=== PATIENT | female | born 1970 | race Caucasian/White ===

== ENCOUNTER 2016-09-20 16:28 | Emergency (ER) | payer MEDICAID ==
[~2016-09-20] VITALS: Ht 165.1 cm; Wt 71.7 kg
[~2016-09-20 16:28] MED LIST: NO MEDS. REPORTED
[2016-09-20] MEDS ORDERED: SULFAMETH/TRIMETH 800/160 MG 1 UDTAB TABLET PO ONE ×2 (16:55→17:00)
[2016-09-20] MEDS ORDERED: CEPHALEXIN MONOHYDRATE 500 MG CAPSULE PO ONE ×2 (16:55→17:00)
[2016-09-20 17:02] VITALS: BP 151/85
== END 2016-09-20 17:02 | disposition left against medical advice (07) ==
LOC: ER 16:34
DX: L03.114 Cellulitis of left upper limb (principal); J45.909 Unspecified asthma, uncomplicated; F17.200 Nicotine dependence, unspecified, uncomplicated; Z90.710 Acquired absence of both cervix and uterus
CPT/HCPCS: A4606; Z7610

== ENCOUNTER 2016-09-21 04:13 | Inpatient (IN) | payer MEDICAID ==
[~2016-09-21] VITALS: Ht 167.6 cm; Wt 71.7 kg
[2016-09-21] MEDS ORDERED: VANCOMYCIN 1 GM VIAL ONE (04:29)
[2016-09-21] MEDS ORDERED: IV SET PRIMARY PUMP SET 1 EA INFUS.SET MC ONE ×2 (04:29→13:08)
[2016-09-21] MEDS ORDERED: IV D5W 250 ML IV ONE (04:29)
[2016-09-21] MEDS ORDERED: VANCOMYCIN 1 GM in IV D5W 250 ML IV ONE (04:30)
[2016-09-21 05:07] LABS: BASOPHILS # (AUTO) 0.1 /CMM (0.0-0.2); BASOPHILS % (AUTO) 0.6 % (0.0-2.0); DIFF TOTAL % 100 %; EOSINOPHILS # (AUTO) 0.2 /CMM (0.0-0.7); EOSINOPHILS % (AUTO) 2.8 % (0.0-6.0); HEMATOCRIT 42 % (33-45); HEMOGLOBIN 14.2 g/dL (11.5-14.8); LYMPHOCYTES # (AUTO) 2.9 /CMM (0.8-4.8); MEAN CORPUSCULAR HEMOGLOBIN 31 PG (26.0-33.0); MEAN CORPUSCULAR HGB CONC 34 g/dl (31.0-36.0); MEAN CORPUSCULAR VOLUME 92 fL (82-100); MONOCYTES # (AUTO) 0.8 /CMM (0.1-1.30); MONOCYTES % (AUTO) 8.6 % (2.0-12.0); NEUTROPHILS # (AUTO) 4.9 /CMM (1.8-8.9); PLATELET COUNT (AUTO) 294 /CMM (150-450); RED BLOOD CELL COUNT(AUTO) 4.52 MIL/uL (4.0-5.2); WHITE BLOOD COUNT (AUTO) 8.9 K/uL (4.3-11.0)
[2016-09-21 05:14] LABS: ANION GAP 15 (5-14); CALCIUM, SERUM 9.4 mg/dL (8.5-10.1); CARBON DIOXIDE 25 mmol/L (21-32); CHLORIDE 103 mmol/L (98-107); CREATININE 0.9 mg/dL (0.6-1.3); GFR 67 mL/min (>60); GLUCOSE 123 mg/dL (74-106); POTASSIUM 4.1 mmol/L (3.5-5.1); SODIUM SERUM 139 mmol/L (136-145); UREA NITROGEN, BLOOD 16 mg/dL (7-18)
[2016-09-21] MEDS ORDERED: HYDROCODONE/APAP 5/325MG 1 EACH TABLET PO PRN (05:30)
[2016-09-21] MEDS ORDERED: ACETAMINOPHEN 325 MG TABLET PO PRN (05:30)
[2016-09-21] MEDS ORDERED: MAGNESIUM HYDROXIDE 30 ML UDC PO PRN (05:30)
[2016-09-21] MEDS ORDERED: Z GUARD REMEDY 2 OZ OINT TP PRN (05:30)
[2016-09-21] MEDS ORDERED: MAG HYDROX/AL HYDROX/SIMETH 30 ML UDC PO PRN (05:30)
[2016-09-21] MEDS ORDERED: ONDANSETRON HCL/PF 4 MG/2 ML VIAL IVP PRN (05:30)
[2016-09-21] MEDS ORDERED: ZOLPIDEM TARTRATE 5 MG TABLET PO PRN (05:30)
[2016-09-21 06:02] LABS: *LACTIC ACID REFLEX FLAG YES
[2016-09-21 07:44] LABS: BILIRUBIN,TOTAL 0.2 mg/dL (0.2-1.0)
[2016-09-21] MEDS ORDERED: FEE PK DOSING 1 MIN EA MC ONE (09:34)
[2016-09-21 10:00] VITALS: BP 132/83
[2016-09-21 10:30] VITALS: BP 132/83
[2016-09-21] MEDS ORDERED: IV SET PRIMARY 1 EA INFUS.SET MC ONE ×2 (12:46→16:04)
[2016-09-21] MEDS ORDERED: VANCOMYCIN 1 GM in IV D5W 250 ML IV SCH (13:00)
[2016-09-21] MEDS ORDERED: IV NS 0.9% 1,000 ML IV SCH (15:30)
[2016-09-21 16:00] VITALS: BP_SYST 132; BP_DIAS 83; BP_DIAS 86
[2016-09-21] MEDS ORDERED: PIPERACILLIN /TAZOBACTAM 3.375 G in IV D5W 50 ML IV SCH (16:00)
[2016-09-21] MEDS ORDERED: EXTENSION IV SET 1 EA INFUS.SET MC ONE (16:22)
[2016-09-21 20:00] VITALS: BP 133/104
== END 2016-09-21 20:25 | disposition left against medical advice (07) | DRG 720 ==
LOC: ER 04:17 → MED 10:05
PROVIDERS: ADMIT Family Medicine; ATTEND Student in an Organized Health Care Education/Training Program
DX: A41.9 Sepsis, unspecified organism (principal); F15.10 Other stimulant abuse, uncomplicated; L03.114 Cellulitis of left upper limb; J45.909 Unspecified asthma, uncomplicated; F19.10 Other psychoactive substance abuse, uncomplicated
CPT/HCPCS: 36415; 80048-TC; 82247-TC; 82248-TC; 83605-TC; 85025-TC; 87040-TC; 87081-TC; A4606; J2543; J3370; J7030; J7060; Z7610

== ENCOUNTER 2019-01-15 08:27 | Emergency (ER) | payer MEDICAID ==
[~2019-01-15] VITALS: Ht 167.6 cm; Wt 70.3 kg
[2019-01-15 10:09] VITALS: BP 140/84
--- NOTE | 2019-01-15 10:10 | NUR ---
Patient discharged to home in stable condition. Written and verbal after care instructions given. Patient verbalizes understanding of instruction.
== END 2019-01-15 10:10 | disposition home or self-care (01) ==
LOC: ER 08:27
DX: S40.012A Contusion of left shoulder, initial encounter (principal); S40.022A Contusion of left upper arm, initial encounter; S60.221A Contusion of right hand, initial encounter; L03.116 Cellulitis of left lower limb; I10 Essential (primary) hypertension; J45.909 Unspecified asthma, uncomplicated; F17.200 Nicotine dependence, unspecified, uncomplicated; Z90.710 Acquired absence of both cervix and uterus; V29.88XA Motorcycle rider (driver) (passenger) injured in other specified transport accidents, initial encounter; Y93.89 Activity, other specified; Y92.413 State road as the place of occurrence of the external cause; Y99.8 Other external cause status
CPT/HCPCS: 73030-TC; 73060-TC; 73130-TC; 73630-TC

== ENCOUNTER 2025-05-11 14:59 | Emergency (ER) | payer OTHER ==
[~2025-05-11] VITALS: Ht 167.6 cm; Wt 92.1 kg
[2025-05-11 15:38] VITALS: BP 115/81; TEMP 98.3
[2025-05-11] MEDS ORDERED: IBUPROFEN 600 MG TABLET ONE (16:01)
[2025-05-11] MEDS ORDERED: TRAMADOL HCL 50 MG TABLET ONE (16:01)
[2025-05-11] MEDS: TRAMADOL HCL 50 MG TABLET PO ONE (16:03)
[2025-05-11] MEDS: IBUPROFEN 600 MG TABLET PO ONE (16:03)
[2025-05-11] MEDS ORDERED: TRAM50TA2 PO (16:55)
[2025-05-11 17:08] VITALS: O2SAT 99
== END 2025-05-11 17:09 | disposition home or self-care (01) ==
LOC: ER 15:05
DX: S82.62XA Displaced fracture of lateral malleolus of left fibula, initial encounter for closed fracture (principal); I11.9 Hypertensive heart disease without heart failure; J45.909 Unspecified asthma, uncomplicated; F17.200 Nicotine dependence, unspecified, uncomplicated; Z90.710 Acquired absence of both cervix and uterus; W10.1XXA Fall (on)(from) sidewalk curb, initial encounter; Y93.89 Activity, other specified; Y92.89 Other specified places as the place of occurrence of the external cause; Y99.8 Other external cause status
CPT/HCPCS: 73610-TC